=== PATIENT | female | born 1985 | race Caucasian/White ===

== ENCOUNTER 2021-06-03 09:09 | Emergency (ER) | payer MEDICAID ==
[~2021-06-03] VITALS: Ht 152.4 cm; Wt 65.0 kg
[2021-06-03 09:19] VITALS: BP 138/72
[2021-06-03] MEDS ORDERED: KETOROLAC 60MG/2ML VIAL IM ONE (15:15)
== END 2021-06-03 16:32 | disposition home or self-care (01) ==
LOC: ER 09:09
DX: S93.402A Sprain of unspecified ligament of left ankle, initial encounter (principal); M25.511 Pain in right shoulder; M25.531 Pain in right wrist; Z98.890 Other specified postprocedural states; X50.1XXA Overexertion from prolonged static or awkward postures, initial encounter; Y93.89 Activity, other specified; Y92.018 Other place in single-family (private) house as the place of occurrence of the external cause
CPT/HCPCS: 73030; 73610; 96372; 99284; J1885